=== PATIENT | male | born 1965 | race Two or more races ===

== ENCOUNTER 2020-10-31 10:45 | Inpatient (IN) | payer OTHER ==
[~2020-10-31] VITALS: Ht 165.1 cm; Wt 86.2 kg
[2020-10-31] MEDS ORDERED: WELLBUTRIN XL150 M1 PO (13:48)
[2020-10-31] MEDS ORDERED: XANAX1 MG PO (13:48)
[2020-10-31] MEDS ORDERED: AMBIEN5 MG PO (13:49)
[2020-10-31] MEDS ORDERED: NORVASC5 MG PO (13:49)
[2020-10-31] MEDS ORDERED: IRBESARTAN300 MG PO (13:49)
[2020-11-07] MEDS ORDERED: RIZATRIPTAN10 MG (08:36)
[2020-11-07] MEDS ORDERED: HYDROCORTISO453.6 G1 (08:37)
[2020-11-07] MEDS ORDERED: ZOLPIDEM TARTRA10 MG (08:37)
[2020-11-07] MEDS ORDERED: TAMSULOSIN HCL0.4 MG (08:37)
== END 2020-11-10 14:35 | disposition home or self-care (01) | DRG 331 ==
LOC: O/R 11-07 05:56 → SURH 11-07 07:00 → SURG 11-07 14:16
PROVIDERS: ADMIT Colon & Rectal Surgery; ATTEND Colon & Rectal Surgery
PROC: 0DTN4ZZ Resection of Sigmoid Colon, Percutaneous Endoscopic Approach (ICD-10-PCS; 2020-11-07)
PROC: 0DJD8ZZ Inspection of Lower Intestinal Tract, Via Natural or Artificial Opening Endoscopic (ICD-10-PCS; 2020-11-07)
PROC: 0DTP4ZZ Resection of Rectum, Percutaneous Endoscopic Approach (ICD-10-PCS; principal; 2020-11-07 07:00)
DX: K57.32 Diverticulitis of large intestine without perforation or abscess without bleeding (principal); R10.32 Left lower quadrant pain

== ENCOUNTER 2021-09-30 09:01 | Day surgery (SDC) | payer OTHER ==
[~2021-09-30 09:01] MED LIST: AMBIEN5 MG PO; HYDROCORTISO453.6 G1; IRBESARTAN300 MG PO; NORVASC5 MG PO; RIZATRIPTAN10 MG; TAMSULOSIN HCL0.4 MG; WELLBUTRIN XL150 M1 PO; XANAX1 MG PO; ZOLPIDEM TARTRA10 MG
== END 2021-09-30 13:00 | disposition home or self-care (01) ==
LOC: AMB-ENDOS 09:01
PROVIDERS: ATTEND Colon & Rectal Surgery
DX: K63.5 Polyp of colon (principal); K57.30 Diverticulosis of large intestine without perforation or abscess without bleeding; K62.5 Hemorrhage of anus and rectum; Z20.822 Contact with and (suspected) exposure to COVID-19; I10 Essential (primary) hypertension